=== PATIENT | female | born 1960 | race Caucasian/White ===

== ENCOUNTER → 2017-07-11 | Outpatient (CLI) | payer OTHER ==
[~2017-07-11] MED LIST: HYDR-3237 PO; HYDR-3307 PO; LIDO700A5 TD; TIZA2CAP2 PO
== END | disposition home or self-care (01) ==
LOC: CFH 15:11
PROVIDERS: ATTEND Physical Medicine & Rehabilitation
DX: R22.41 Localized swelling, mass and lump, right lower limb (principal)

== ENCOUNTER 2017-09-28 08:31 | Emergency (ER) | payer OTHER ==
[~2017-09-28] VITALS: Ht 165.1 cm; Wt 98.0 kg
[2017-09-28] MEDS ORDERED: ONDANSETRON 2MG/ML, 2ML IVPush ONE (09:00)
[2017-09-28] MEDS ORDERED: SODIUM CHLORIDE 0.9% 1,000ML IVBOLUS ONE (09:00)
[2017-09-28] MEDS ORDERED: SODIUM CHLORIDE FLUSH 10ML SYR IVF ONE (09:00)
[2017-09-28] MEDS ORDERED: ONDANSETRON 2MG/ML, 2ML ONE (09:17)
[2017-09-28] MEDS ORDERED: PLEASE ENTER HEIGHT AND WEIGHT MC SCH (09:30)
[2017-09-28 09:39] LABS: ANION GAP 6 mmol/L (5-15); CALCIUM 8.8 mg/dL (8.5-10.1); CHLORIDE 111 mmol/L (98-107); CREATININE 0.59 mg/dL (0.55-1.02)
[2017-09-28 09:40] LABS: ALBUMIN 3.6 g/dL (3.4-5.0)
[2017-09-28 09:43] LABS: TROPONIN I < 0.015 ng/mL (0.000-0.045)
[2017-09-28] MEDS ORDERED: META800T PO (09:58)
[2017-09-28 10:15] LABS: BASOPHILS # (AUTO) 0.03 x10^3/uL (0-0.1); BASOPHILS % (AUTO) 0 % (0-1); EOSINOPHILS # (AUTO) 0.04 x10^3/uL (0-0.4); EOSINOPHILS % (AUTO) 1 % (1-7); LYMPHOCYTES # (AUTO) 1.46 x10^3/uL (1-3.4); LYMPHOCYTES % (AUTO) 19 % (22-44); MD NO; MEAN CORPUSCULAR HEMOGLOBIN 30.3 pg (27.0-34.8); MEAN CORPUSCULAR HGB CONC 33.8 g/dL (32.4-35.8); MEAN CORPUSCULAR VOLUME 89.7 fL (80-100); MEAN PLATELET VOLUME 8.1 fL (7.4-10.4); MONOCYTES # (AUTO) 0.58 x10^3/uL (0.2-0.8); MONOCYTES % (AUTO) 8 % (2-9); NEUTROPHILS % (AUTO) 72 % (42-75); PLATELET COUNT 244 x10^3/uL (130-400); RED BLOOD COUNT 4.45 x10^6/uL (3.82-5.3); RED CELL DISTRIBUTION WIDTH 13.4 % (9.6-15.2)
[2017-09-28] MEDS ORDERED: DIPHENHYDRAMINE 50 MG/ML, 1ML IVPush PRN (11:00)
[2017-09-28] MEDS ORDERED: methylPREDNISolone SOD SUCC 125 MG/2 ML IVPush ONE (11:00)
[2017-09-28 11:33] LABS: MICROSCOPIC AUTO
[2017-09-28 11:35] LABS: CULTURE INDICATED? YES
[2017-09-28 11:36] VITALS: BP 132/63
[2017-09-28] MEDS ORDERED: methylPREDNISolone SOD SUCC 125 MG/2 ML ONE (11:42)
[2017-09-28] MEDS ORDERED: DIPHENHYDRAMINE 50 MG/ML, 1ML ONE (11:42)
[2017-09-28] MEDS ORDERED: OMNIPAQUE 350 MG/ML, 100ML BOTTLE ONE (12:26)
== END 2017-09-28 12:58 | disposition home or self-care (01) ==
LOC: ED 11:08
DX: R55 Syncope and collapse (principal); N12 Tubulo-interstitial nephritis, not specified as acute or chronic; E66.9 Obesity, unspecified; F17.210 Nicotine dependence, cigarettes, uncomplicated
CPT/HCPCS: 36415; 71045; 71275; 80048; 81001; 82040; 83880; 84484; 85025; 85379; 87086; 93005; 96361; 96374; 96375; 99285; J1200; J2405; J2930; J7030; Q9967

== ENCOUNTER 2018-03-01 17:34 | Emergency (ER) | payer OTHER ==
[~2018-03-01] VITALS: Ht 165.1 cm; Wt 97.9 kg
[~2018-03-01 17:34] MED LIST changes: +META800T PO
[2018-03-01 17:38] VITALS: BP 125/77
[2018-03-01] MEDS ORDERED: PHENAZOPYRIDINE 200 MG TABLET PO ONE (18:30)
[2018-03-01 18:32] LABS: MICROSCOPIC INDICATED
[2018-03-01] MEDS ORDERED: PHENAZOPYRIDINE 200 MG TABLET ONE (18:32)
[2018-03-01 18:57] LABS: BASOPHILS # (AUTO) 0.02 x10^3/uL (0-0.1); BASOPHILS % (AUTO) 0 % (0-1); EOSINOPHILS # (AUTO) 0.09 x10^3/uL (0-0.4); EOSINOPHILS % (AUTO) 1 % (1-7); LYMPHOCYTES % (AUTO) 22 % (22-44); MD NO; MEAN CORPUSCULAR HEMOGLOBIN 31.5 pg (27.0-34.8); MEAN CORPUSCULAR HGB CONC 33.9 g/dL (32.4-35.8); MEAN CORPUSCULAR VOLUME 92.8 fL (80-100); MEAN PLATELET VOLUME 8.9 fL (7.4-10.4); MONOCYTES # (AUTO) 0.43 x10^3/uL (0.2-0.8); MONOCYTES % (AUTO) 4 % (2-9); NEUTROPHILS # (AUTO) 7.71 x10^3/uL (1.8-6.8); NEUTROPHILS % (AUTO) 73 % (42-75); PLATELET COUNT 240 x10^3/uL (130-400); RED BLOOD COUNT 4.18 x10^6/uL (3.82-5.3); RED CELL DISTRIBUTION WIDTH 13.4 % (9.6-15.2)
[2018-03-01 19:05] LABS: ALANINE AMINOTRANSFERASE 16 U/L (12-78); ALBUMIN 3.4 g/dL (3.4-5.0); ANION GAP 7 mmol/L (5-15); CALCIUM 8.6 mg/dL (8.5-10.1); CHLORIDE 111 mmol/L (98-107); CREATININE 0.64 mg/dL (0.55-1.02)
[2018-03-01 19:07] LABS: ALKALINE PHOSPHATASE 101 U/L (45-117); BILIRUBIN,TOTAL 0.2 mg/dL (0.2-1.0); TOTAL PROTEIN 7.1 g/dL (6.4-8.2)
== END 2018-03-01 20:08 | disposition home or self-care (01) ==
LOC: ED 18:12
DX: N30.01 Acute cystitis with hematuria (principal); Z88.6 Allergy status to analgesic agent; Z88.5 Allergy status to narcotic agent; Z88.8 Allergy status to other drugs, medicaments and biological substances
CPT/HCPCS: 36415; 80053; 81001; 83690; 85025; 99284

== ENCOUNTER 2018-03-05 10:48 | Emergency (ER) | payer OTHER ==
[~2018-03-05] VITALS: Ht 162.6 cm; Wt 95.0 kg
[2018-03-05] MEDS ORDERED: SODIUM CHLORIDE FLUSH 10ML SYR IVF ONE (11:30)
[2018-03-05 11:31] LABS: MICROSCOPIC AUTO
[2018-03-05 11:41] LABS: BASOPHILS # (AUTO) 0.03 x10^3/uL (0-0.1); BASOPHILS % (AUTO) 0 % (0-1); EOSINOPHILS # (AUTO) 0.09 x10^3/uL (0-0.4); EOSINOPHILS % (AUTO) 1 % (1-7); LYMPHOCYTES # (AUTO) 2.25 x10^3/uL (1-3.4); LYMPHOCYTES % (AUTO) 31 % (22-44); MD NO; MEAN CORPUSCULAR HEMOGLOBIN 31.6 pg (27.0-34.8); MEAN CORPUSCULAR HGB CONC 34.2 g/dL (32.4-35.8); MEAN CORPUSCULAR VOLUME 92.2 fL (80-100); MEAN PLATELET VOLUME 8.7 fL (7.4-10.4); MONOCYTES # (AUTO) 0.55 x10^3/uL (0.2-0.8); MONOCYTES % (AUTO) 8 % (2-9); NEUTROPHILS # (AUTO) 4.41 x10^3/uL (1.8-6.8); NEUTROPHILS % (AUTO) 60 % (42-75); PLATELET COUNT 268 x10^3/uL (130-400); RED BLOOD COUNT 4.44 x10^6/uL (3.82-5.3); RED CELL DISTRIBUTION WIDTH 13.1 % (9.6-15.2)
[2018-03-05 11:51] LABS: CULTURE INDICATED? YES
[2018-03-05 11:54] LABS: ALANINE AMINOTRANSFERASE 17 U/L (12-78); ALBUMIN 3.6 g/dL (3.4-5.0); ANION GAP 5 mmol/L (5-15); CALCIUM 8.8 mg/dL (8.5-10.1); CHLORIDE 110 mmol/L (98-107)
[2018-03-05 11:56] LABS: ALKALINE PHOSPHATASE 109 U/L (45-117); BILIRUBIN,TOTAL 0.3 mg/dL (0.2-1.0); TOTAL PROTEIN 7.6 g/dL (6.4-8.2)
[2018-03-05 15:00] VITALS: BP 142/79
== END 2018-03-05 15:02 | disposition home or self-care (01) ==
LOC: ED 14:55
DX: N13.2 Hydronephrosis with renal and ureteral calculous obstruction (principal); N30.00 Acute cystitis without hematuria; Z88.6 Allergy status to analgesic agent; Z88.5 Allergy status to narcotic agent
CPT/HCPCS: 36415; 74176; 80053; 81001; 85025; 87086; 99285

== ENCOUNTER → 2018-05-14 | Outpatient (CLI) | payer OTHER | END | disposition home or self-care (01) | LOC: STAR 08:47 | PROVIDERS: ATTEND Student in an Organized Health Care Education/Training Program | DX: Z01.818 Encounter for other preprocedural examination (principal); N20.0 Calculus of kidney | CPT/HCPCS: 36415; 71046; 80048; 81001; 85025; 85610; 85730; 87086; 93005 ==

== ENCOUNTER 2018-06-04 07:21 | Day surgery (SDC) | payer OTHER ==
[2018-05-14 09:14] VITALS: BP 147/90
[2018-05-14 10:04] LABS: BASOPHILS # (AUTO) 0.04 x10^3/uL (0-0.1); BASOPHILS % (AUTO) 1 % (0-1); EOSINOPHILS # (AUTO) 0.12 x10^3/uL (0-0.4); EOSINOPHILS % (AUTO) 2 % (1-7); LYMPHOCYTES # (AUTO) 2.11 x10^3/uL (1-3.4); LYMPHOCYTES % (AUTO) 32 % (22-44); MD NO; MEAN CORPUSCULAR VOLUME 93.9 fL (80-100); MEAN PLATELET VOLUME 8.6 fL (7.4-10.4); MONOCYTES # (AUTO) 0.49 x10^3/uL (0.2-0.8); MONOCYTES % (AUTO) 7 % (2-9); NEUTROPHILS % (AUTO) 59 % (42-75); PLATELET COUNT 273 x10^3/uL (130-400); RED BLOOD COUNT 4.35 x10^6/uL (3.82-5.3); RED CELL DISTRIBUTION WIDTH 13.1 % (9.6-15.2)
[2018-05-14 10:13] LABS: ANION GAP 5 mmol/L (5-15); CALCIUM 8.8 mg/dL (8.5-10.1); CHLORIDE 109 mmol/L (98-107)
[2018-05-14 10:19] LABS: MICROSCOPIC INDICATED
[2018-05-14 10:19] LABS: INTERNATIONAL NORMALIZED RATIO 0.94 (0.93-1.1); PROTHROMBIN TIME 9.8 Seconds (9.6-11.5)
[~2018-06-04] VITALS: Ht 165.1 cm; Wt 95.1 kg
[2018-06-04] MEDS ORDERED: LACTATED RINGERS 1,000 ML IV SCH (07:52)
== END 2018-06-04 08:25 | disposition home or self-care (01) ==
LOC: OUT 07:21 → EDSTATUS 09:30
PROVIDERS: ATTEND Student in an Organized Health Care Education/Training Program
DX: N20.0 Calculus of kidney (principal); Z53.9 Procedure and treatment not carried out, unspecified reason
CPT/HCPCS: 36415; 71046; 80048; 81001; 85025; 85610; 85730; 87086

== ENCOUNTER 2019-02-12 18:34 | Emergency (ER) | payer OTHER ==
[~2019-02-12] VITALS: Ht 165.1 cm; Wt 101.7 kg
--- NOTE | 2019-02-12 19:13 | NUR ---
Pt reports bilateral flank pain x1 week approx, "felt like I passed a lego last week" Cloudy urine sent to lab, pt denies any needs/concerns.
[2019-02-12] MEDS ORDERED: GABA600T7 PO (19:18)
[2019-02-12 19:27] LABS: CULTURE INDICATED? YES; MICROSCOPIC INDICATED
[2019-02-12 19:29] LABS: BASOPHILS # (AUTO) 0.05 x10^3/uL (0-0.1); BASOPHILS % (AUTO) 1 % (0-1); EOSINOPHILS # (AUTO) 0.12 x10^3/uL (0-0.4); EOSINOPHILS % (AUTO) 1 % (1-7); LYMPHOCYTES # (AUTO) 2.56 x10^3/uL (1-3.4); LYMPHOCYTES % (AUTO) 27 % (22-44); MD NO; MEAN CORPUSCULAR HEMOGLOBIN 31.3 pg (27.0-34.8); MEAN PLATELET VOLUME 8.2 fL (7.4-10.4); MONOCYTES # (AUTO) 0.65 x10^3/uL (0.2-0.8); MONOCYTES % (AUTO) 7 % (2-9); NEUTROPHILS # (AUTO) 5.96 x10^3/uL (1.8-6.8); NEUTROPHILS % (AUTO) 64 % (42-75); PLATELET COUNT 327 x10^3/uL (130-400); RED CELL DISTRIBUTION WIDTH 12.9 % (9.6-15.2)
[2019-02-12 19:35] LABS: ALBUMIN 3.6 g/dL (3.4-5.0); ANION GAP 5 mmol/L (5-15); CHLORIDE 106 mmol/L (98-107); CREATININE 0.71 mg/dL (0.55-1.02)
--- NOTE | 2019-02-12 19:49 | NUR ---
Chart up for recheck, pt denies needs/concerns. Sitting on chair on phone. No obv acute distress noted.
[2019-02-12] MEDS ORDERED: CEFTRIAXONE 1,000 MG IM ONE (20:00)
[2019-02-12 20:21] VITALS: BP 121/61
[2019-02-12] MEDS ORDERED: CEFTRIAXONE 1,000 MG ONE (20:22)
== END 2019-02-12 20:42 | disposition home or self-care (01) ==
LOC: ED 19:14
DX: N30.00 Acute cystitis without hematuria (principal); R19.7 Diarrhea, unspecified; I10 Essential (primary) hypertension; F17.200 Nicotine dependence, unspecified, uncomplicated
CPT/HCPCS: 36415; 80048; 81001; 82040; 85025; 87086; 96372; 99283; J0696

== ENCOUNTER 2019-08-03 08:37 | Emergency (ER) | payer OTHER ==
[~2019-08-03] VITALS: Ht 165.1 cm; Wt 99.6 kg
[~2019-08-03 08:37] MED LIST changes: +GABA600T7 PO; -HYDR-3307 PO; +HYDR-36 PO
[2019-08-03] MEDS ORDERED: ONDANSETRON 2MG/ML, 2ML IVPush ONE (09:30)
[2019-08-03] MEDS ORDERED: FAMOTIDINE 20 MG/2 ML IV ONE (09:30)
[2019-08-03] MEDS ORDERED: HYDROmorphone 2 MG/ML, 1ML IVPush PRN (09:30)
[2019-08-03] MEDS ORDERED: SODIUM CHLORIDE 0.9% 1,000ML IVBOLUS ONE (09:30)
[2019-08-03] MEDS ORDERED: SODIUM CHLORIDE FLUSH 10ML SYR IVF ONE (09:30)
[2019-08-03 09:32] LABS: MICROSCOPIC INDICATED
[2019-08-03 09:35] LABS: CULTURE INDICATED? YES
[2019-08-03 09:55] LABS: BASOPHILS # (AUTO) 0.03 x10^3/uL (0-0.1); BASOPHILS % (AUTO) 1 % (0-1); EOSINOPHILS # (AUTO) 0.05 x10^3/uL (0-0.4); EOSINOPHILS % (AUTO) 1 % (1-7); LYMPHOCYTES # (AUTO) 1.86 x10^3/uL (1-3.4); LYMPHOCYTES % (AUTO) 30 % (22-44); MD NO; MEAN CORPUSCULAR HEMOGLOBIN 29.8 pg (27.0-34.8); MEAN CORPUSCULAR HGB CONC 32.9 g/dL (32.4-35.8); MEAN CORPUSCULAR VOLUME 90.4 fL (80-100); MEAN PLATELET VOLUME 7.5 fL (7.4-10.4); MONOCYTES # (AUTO) 0.52 x10^3/uL (0.2-0.8); MONOCYTES % (AUTO) 8 % (2-9); NEUTROPHILS # (AUTO) 3.71 x10^3/uL (1.8-6.8); NEUTROPHILS % (AUTO) 60 % (42-75); PLATELET COUNT 337 x10^3/uL (130-400); RED BLOOD COUNT 4.19 x10^6/uL (3.82-5.3); RED CELL DISTRIBUTION WIDTH 13.9 % (9.6-15.2)
[2019-08-03] MEDS ORDERED: ONDANSETRON 2MG/ML, 2ML ONE (09:56)
[2019-08-03] MEDS ORDERED: HYDROmorphone 1 MG/ML, 1ML VIAL ONE (09:56)
[2019-08-03] MEDS ORDERED: FAMOTIDINE 20 MG/2 ML ONE (09:56)
[2019-08-03 10:04] LABS: ALANINE AMINOTRANSFERASE 14 U/L (12-78); ANION GAP 7 mmol/L (5-15); CALCIUM 8.8 mg/dL (8.5-10.1); CHLORIDE 110 mmol/L (98-107); CREATININE 0.59 mg/dL (0.55-1.02)
[2019-08-03 10:07] LABS: ALKALINE PHOSPHATASE 120 U/L (45-117); BILIRUBIN,TOTAL 0.4 mg/dL (0.2-1.0); TOTAL PROTEIN 7.3 g/dL (6.4-8.2)
[2019-08-03] MEDS ORDERED: TIZA4TAB2 PO (10:07)
[2019-08-03] MEDS ORDERED: GABA300C10 PO (10:07)
--- NOTE | 2019-08-03 10:08 | NUR ---
Break RN note: Pt medicated per OCT, 5 min after medications states pain 0/10. US tech at bedside to perform ordered studies. Pt denies other needs.
[2019-08-03] MEDS ORDERED: CEFTRIAXONE PMX 1GM/50ML 50 ML IV SCH (10:30)
[2019-08-03] MEDS ORDERED: CEFTRIAXONE PMX 1GM/50ML 50 ML ONE (10:34)
--- NOTE | 2019-08-03 10:42 | NUR ---
AFTER ULTRASOUND UOB TO BATHROOM. ANTIBIOTICS INFUSING PER ORDERS.
[2019-08-03 11:50] VITALS: BP 124/69
== END 2019-08-03 11:52 | disposition home or self-care (01) ==
LOC: ED 10:56
DX: N20.0 Calculus of kidney (principal); N11.9 Chronic tubulo-interstitial nephritis, unspecified; R19.7 Diarrhea, unspecified; I10 Essential (primary) hypertension; G89.29 Other chronic pain; Z90.89 Acquired absence of other organs; Z88.5 Allergy status to narcotic agent; Z88.6 Allergy status to analgesic agent
CPT/HCPCS: 36415; 76700; 80053; 81001; 83690; 85025; 87086; 96361; 96365; 96375; 99284; J0696; J1170; J2405; J3490; J7030

== ENCOUNTER 2020-04-17 19:27 | Inpatient (IN) | payer OTHER ==
[~2020-04-17] VITALS: Ht 165.1 cm; Wt 96.3 kg
[~2020-04-17 19:27] MED LIST changes: +GABA300C10 PO; +HYDR-3246 PO; -HYDR-36 PO; +SULF1TAB24 PO; +TIZA4TAB2 PO
--- NOTE | 2020-04-17 20:00 | NUR ---
PT. AMBULATORY TO BR WITH STEADY GAIT TO PROVIDE CLEAN CATCH URINE SAMPLE. PT. ONLY ABLE TO VOID ABOUT 50ML OF CLOUDY YELLOW URINE. REPORTS PAINFUL URINATION. RIGHT NEPHROSTOMY TUBE DRAINAGE BAG WITH VERY CLOUDY/SEDIMENTED URINE NOTED. PT. AWAITING PROVIDER JOSELITO.
[2020-04-17 20:10] LABS: MICROSCOPIC INDICATED
--- NOTE | 2020-04-17 20:27 | NUR ---
PT. TO CT VIA [facility] AT THIS TIME.
--- NOTE | 2020-04-17 20:47 | NUR ---
PT. RESTING ON GURNEY; DENIES NEEDS AT THIS TIME. FRIEND AT BS FOR SUPPORT. ALL SAFETY MEASURES OBSERVED.
[2020-04-17 20:52] LABS: ALANINE AMINOTRANSFERASE 10 U/L (12-78); ANION GAP 7 mmol/L (5-15); CALCIUM 8.7 mg/dL (8.5-10.1); CHLORIDE 110 mmol/L (98-107); CREATININE 0.78 mg/dL (0.55-1.02)
[2020-04-17 20:54] LABS: ALKALINE PHOSPHATASE 107 U/L (45-117); BILIRUBIN,TOTAL 0.2 mg/dL (0.2-1.0); TOTAL PROTEIN 7.2 g/dL (6.4-8.2)
[2020-04-17 20:59] LABS: BASOPHILS # (AUTO) 0.05 x10^3/uL (0-0.1); BASOPHILS % (AUTO) 1 % (0-1); EOSINOPHILS # (AUTO) 0.29 x10^3/uL (0-0.4); EOSINOPHILS % (AUTO) 4 % (1-7); LYMPHOCYTES # (AUTO) 2.24 x10^3/uL (1-3.4); LYMPHOCYTES % (AUTO) 31 % (22-44); MD NO; MEAN CORPUSCULAR HEMOGLOBIN 29.8 pg (27.0-34.8); MEAN CORPUSCULAR HGB CONC 32.8 g/dL (32.4-35.8); MEAN CORPUSCULAR VOLUME 90.8 fL (80-100); MEAN PLATELET VOLUME 7.9 fL (7.4-10.4); MONOCYTES % (AUTO) 7 % (2-9); NEUTROPHILS # (AUTO) 4.05 x10^3/uL (1.8-6.8); NEUTROPHILS % (AUTO) 57 % (42-75); PLATELET COUNT 264 x10^3/uL (130-400); RED BLOOD COUNT 3.39 x10^6/uL (3.82-5.3); RED CELL DISTRIBUTION WIDTH 14.6 % (9.6-15.2)
[2020-04-17] MEDS ORDERED: SODIUM CHLORIDE 0.9% 1,000ML IVBOLUS ONE (21:30)
[2020-04-17] MEDS ORDERED: CEFTRIAXONE PMX 1GM/50ML 50 ML IV ONE (21:30)
[2020-04-17] MEDS ORDERED: SODIUM CHLORIDE FLUSH 10ML SYR IVF ONE (21:30)
[2020-04-17] MEDS ORDERED: CEFTRIAXONE PMX 1GM/50ML 50 ML ONE (21:42)
[2020-04-17] MEDS ORDERED: KETOROLAC 30 MG/1 ML ONE (21:42)
--- NOTE | 2020-04-17 21:47 | NUR ---
[facility] IN TO EVAL PT. FOR ADMISSION. PT. MEDICATED PER OCT.
[2020-04-17] MEDS ORDERED: KETOROLAC 30 MG/1 ML IVPush ONE (22:00)
[2020-04-17] MEDS ORDERED: DOCUSATE 100 MG CAPSULE PO PRN (22:00)
[2020-04-17] MEDS: ENOXAPARIN 40 MG/0.4 ML SQ SCH (22:00)
[2020-04-17] MEDS ORDERED: CYCLOBENZAPRINE 10 MG TABLET PO PRN (22:00)
[2020-04-17] MEDS ORDERED: MELATONIN 5 MG TABLET PO PRN (22:00)
[2020-04-17] MEDS ORDERED: ACETAMINOPHEN 325 MG TABLET PO PRN (22:00)
[2020-04-17] MEDS ORDERED: KETOROLAC 30 MG/1 ML IV PRN (22:00)
[2020-04-17] MEDS ORDERED: hydrALAzine 20 MG/ML, 1ML IVPush PRN (22:00)
[2020-04-17] MEDS ORDERED: NICOTINE 14MG/24 HR PATCH.TD24 TD ONE (22:30)
[2020-04-17] MEDS: CEFTRIAXONE PMX 1GM/50ML 50 ML IV SCH (22:30)
--- NOTE | 2020-04-17 22:36 | NUR ---
REPORT TO [facility] FRANCO. FLOOR READY FOR PT. TRANSPORT. MED REC COMPLETED.
[2020-04-17 23:05] VITALS: BP_SYST 159; BP_SYST 195; BP_DIAS 88
[2020-04-17] MEDS: LACTATED RINGERS 1,000 ML IV SCH (23:09)
[2020-04-18 01:28] LABS: BASOPHILS # (AUTO) 0.04 x10^3/uL (0-0.1); BASOPHILS % (AUTO) 1 % (0-1); EOSINOPHILS % (AUTO) 5 % (1-7); LYMPHOCYTES # (AUTO) 2.06 x10^3/uL (1-3.4); LYMPHOCYTES % (AUTO) 32 % (22-44); MD NO; MEAN CORPUSCULAR HGB CONC 32.9 g/dL (32.4-35.8); MEAN CORPUSCULAR VOLUME 91.1 fL (80-100); MONOCYTES # (AUTO) 0.48 x10^3/uL (0.2-0.8); MONOCYTES % (AUTO) 7 % (2-9); NEUTROPHILS # (AUTO) 3.64 x10^3/uL (1.8-6.8); NEUTROPHILS % (AUTO) 56 % (42-75); PLATELET COUNT 240 x10^3/uL (130-400); RED BLOOD COUNT 3.24 x10^6/uL (3.82-5.3); RED CELL DISTRIBUTION WIDTH 15.2 % (9.6-15.2)
[2020-04-18 01:37] LABS: ANION GAP 7 mmol/L (5-15); CALCIUM 8.6 mg/dL (8.5-10.1); CHLORIDE 111 mmol/L (98-107); CREATININE 0.72 mg/dL (0.55-1.02)
[2020-04-18 04:35] VITALS: BP 152/86
[2020-04-18 04:40] VITALS: BP 152/86
[2020-04-18 07:38] VITALS: BP 175/85
[2020-04-18] MEDS ORDERED: POTASSIUM CHLORIDE 40 MEQ in SODIUM CHLORIDE 0.9% 500 ML IV ONE (08:00)
[2020-04-18] MEDS: LACTATED RINGERS 1,000 ML IV SCH ×2 (08:22→17:07)
[2020-04-18] MEDS: TIZANIDINE 4MG TABLET PO SCH ×3 (08:38→22:25)
[2020-04-18] MEDS: GABAPENTIN 400 MG CAPSULE PO SCH ×3 (08:38→22:25)
[2020-04-18] MEDS ORDERED: HYDROmorphone 2 MG/ML, 1ML IVPush PRN (12:30)
[2020-04-18] MEDS: ONDANSETRON 2MG/ML, 2ML IVPush PRN (13:05)
[2020-04-18 13:29] VITALS: BP 148/69
[2020-04-18 19:49] VITALS: BP 144/82
[2020-04-18] MEDS: ENOXAPARIN 40 MG/0.4 ML SQ SCH ×3 (22:00→22:45)
[2020-04-18] MEDS: CEFTRIAXONE PMX 1GM/50ML 50 ML IV SCH (22:26)
[2020-04-19 01:16] VITALS: BP 154/76
[2020-04-19] MEDS: LACTATED RINGERS 1,000 ML IV SCH ×2 (06:00→16:00)
[2020-04-19 06:05] LABS: CHLORIDE 112 mmol/L (98-107)
[2020-04-19 06:12] LABS: BASOPHILS # (AUTO) 0.03 x10^3/uL (0-0.1); BASOPHILS % (AUTO) 1 % (0-1); EOSINOPHILS # (AUTO) 0.14 x10^3/uL (0-0.4); EOSINOPHILS % (AUTO) 2 % (1-7); LYMPHOCYTES # (AUTO) 1.54 x10^3/uL (1-3.4); LYMPHOCYTES % (AUTO) 23 % (22-44); MD NO; MEAN CORPUSCULAR HEMOGLOBIN 30.2 pg (27.0-34.8); MEAN CORPUSCULAR VOLUME 94.3 fL (80-100); MEAN PLATELET VOLUME 8.2 fL (7.4-10.4); MONOCYTES # (AUTO) 0.39 x10^3/uL (0.2-0.8); MONOCYTES % (AUTO) 6 % (2-9); NEUTROPHILS # (AUTO) 4.65 x10^3/uL (1.8-6.8); NEUTROPHILS % (AUTO) 69 % (42-75); PLATELET COUNT 268 x10^3/uL (130-400); RED BLOOD COUNT 3.49 x10^6/uL (3.82-5.3); RED CELL DISTRIBUTION WIDTH 14.8 % (9.6-15.2)
[2020-04-19 06:18] LABS: ANION GAP 6 mmol/L (5-15); CALCIUM 8.6 mg/dL (8.5-10.1); CREATININE 0.51 mg/dL (0.55-1.02)
[2020-04-19 07:58] VITALS: BP 158/78
[2020-04-19] MEDS: GABAPENTIN 400 MG CAPSULE PO SCH ×3 (08:17→20:35)
[2020-04-19] MEDS: TIZANIDINE 4MG TABLET PO SCH ×3 (08:19→20:34)
[2020-04-19] MEDS: HYDROcodone/APAP 10/325 MG TABLET PO PRN ×2 (08:21→16:41)
[2020-04-19] MEDS ORDERED: POTASSIUM CHLORIDE 20 MEQ TAB.ER.PRT PO ONE (09:30)
[2020-04-19 12:21] VITALS: BP 133/87
[2020-04-19] MEDS: LACTOBACILLUS CHEW TABLET PO SCH ×3 (12:26→20:34)
[2020-04-19 15:32] LABS: CLOSTRIDIUM DIFFICILE ANTIGEN NEGATIVE; CLOSTRIDIUM DIFFICILE TOXIN NEGATIVE (Negative)
[2020-04-19] MEDS ORDERED: NICOTINE 21 MG/24 HR PATCH.TD24 ONE (15:38)
[2020-04-19] MEDS: TAMSULOSIN 0.4 MG CAP.ER.24H PO SCH (15:43)
[2020-04-19] MEDS: NICOTINE 21 MG/24 HR PATCH.TD24 TD SCH (15:44)
[2020-04-19 16:33] LABS: MICROSCOPIC INDICATED
[2020-04-19 20:11] VITALS: BP 156/90
[2020-04-19] MEDS: ENOXAPARIN 40 MG/0.4 ML SQ SCH (22:00)
[2020-04-20 01:18] VITALS: BP 150/88
[2020-04-20] MEDS: CEFTRIAXONE PMX 1GM/50ML 50 ML IV SCH ×2 (02:10→14:28)
[2020-04-20 05:08] LABS: ANION GAP 5 mmol/L (5-15); CALCIUM 8.8 mg/dL (8.5-10.1); CHLORIDE 112 mmol/L (98-107)
[2020-04-20 05:09] LABS: CREATININE 0.57 mg/dL (0.55-1.02)
[2020-04-20] MEDS ORDERED: CEFTRIAXONE PMX 2GM/50ML 50 ML IV SCH (06:30)
[2020-04-20] MEDS ORDERED: LOPERAMIDE 2 MG CAPSULE PO PRN (06:30)
[2020-04-20] MEDS: LACTOBACILLUS CHEW TABLET PO SCH ×5 (06:39→21:00)
[2020-04-20] MEDS: LACTATED RINGERS 1,000 ML IV SCH (08:00)
[2020-04-20] MEDS: NICOTINE 21 MG/24 HR PATCH.TD24 TD SCH (08:10)
[2020-04-20] MEDS: GABAPENTIN 400 MG CAPSULE PO SCH ×3 (08:10→21:43)
[2020-04-20] MEDS: CHOLESTYRAMINE LIGHT 4GM PACKET PO SCH ×2 (08:10→08:17)
[2020-04-20] MEDS: TAMSULOSIN 0.4 MG CAP.ER.24H PO SCH (08:10)
[2020-04-20] MEDS: TIZANIDINE 4MG TABLET PO SCH ×3 (08:10→21:43)
[2020-04-20 08:20] VITALS: BP 188/83
[2020-04-20] MEDS: ONDANSETRON 2MG/ML, 2ML IVPush PRN ×2 (08:43→20:08)
[2020-04-20] MEDS: HYDROcodone/APAP 10/325 MG TABLET PO PRN ×2 (10:48→19:33)
[2020-04-20] MEDS: ALUMINUM/MAG/SIMETHICONE 30 ML UDC PO PRN ×2 (10:48→17:23)
[2020-04-20] MEDS ORDERED: LORazepam 2 MG/ML, 1ML IVPush PRN (11:00)
[2020-04-20 11:10] VITALS: BP 165/80
[2020-04-20 12:57] VITALS: BP 162/82
[2020-04-20] MEDS: SIMETHICONE 80 MG CHEW TAB PO SCH ×3 (13:31→21:43)
[2020-04-20 18:52] VITALS: BP 162/90
[2020-04-20] MEDS: ENOXAPARIN 40 MG/0.4 ML SQ SCH (21:44)
[2020-04-21 00:45] VITALS: BP 137/88
[2020-04-21] MEDS: CEFTRIAXONE PMX 1GM/50ML 50 ML IV SCH (02:28)
[2020-04-21] MEDS: ONDANSETRON 2MG/ML, 2ML IVPush PRN (03:46)
[2020-04-21] MEDS: LACTOBACILLUS CHEW TABLET PO SCH ×2 (06:00→11:00)
[2020-04-21] MEDS: TAMSULOSIN 0.4 MG CAP.ER.24H PO SCH (07:43)
[2020-04-21] MEDS: TIZANIDINE 4MG TABLET PO SCH (07:43)
[2020-04-21] MEDS: SIMETHICONE 80 MG CHEW TAB PO SCH ×2 (07:43→11:00)
[2020-04-21] MEDS: GABAPENTIN 400 MG CAPSULE PO SCH (07:43)
[2020-04-21] MEDS: HYDROcodone/APAP 10/325 MG TABLET PO PRN (07:45)
[2020-04-21] MEDS: NICOTINE 21 MG/24 HR PATCH.TD24 TD SCH (07:45)
[2020-04-21] MEDS: CHOLESTYRAMINE LIGHT 4GM PACKET PO SCH (07:45)
[2020-04-21 08:05] VITALS: BP 153/92
[2020-04-21] MEDS ORDERED: TAMS-11 PO (09:42)
[2020-04-21] MEDS ORDERED: SULF1TAB24 PO (09:42)
[2020-04-21] MEDS ORDERED: ACID1TAB7 PO (09:42)
[2020-04-21] MEDS: ALUMINUM/MAG/SIMETHICONE 30 ML UDC PO PRN (11:58)
[2020-04-21 14:03] VITALS: BP 169/101
[2020-04-21] MEDS ORDERED: HYDR-3341 PO (14:26)
== END 2020-04-21 14:45 | disposition home or self-care (01) | DRG 690 ==
LOC: ED 19:57 → 3N 22:45
PROVIDERS: ADMIT Hospitalist; ATTEND Internal Medicine
DX: N13.6 Pyonephrosis (principal); N20.2 Calculus of kidney with calculus of ureter; E87.6 Hypokalemia; D64.9 Anemia, unspecified; F17.210 Nicotine dependence, cigarettes, uncomplicated; G89.29 Other chronic pain; I10 Essential (primary) hypertension; Z98.51 Tubal ligation status; Z88.5 Allergy status to narcotic agent; Z91.041 Radiographic dye allergy status
CPT/HCPCS: 36415; 74176; 80048; 80053; 81001; 83690; 83735; 84100; 85025; 87040; 87086; 87324; 96365; G0378; J0696; J1650; J1885; J2405; J3480; J2060; J7030; J7040; J7120

== ENCOUNTER 2020-08-21 05:19 | Inpatient (IN) | payer OTHER ==
[~2020-08-21] VITALS: Ht 160 cm; Wt 90.0 kg
[~2020-08-21 05:19] MED LIST changes: +ACID1TAB7 PO; +CIPR500T3 PO; +HYDR-3341 PO; +TAMS-11 PO
[2020-08-21] MEDS ORDERED: FAMOTIDINE 20 MG/2 ML IV ONE (06:00)
[2020-08-21] MEDS ORDERED: SODIUM CHLORIDE FLUSH 10ML SYR IVF ONE (06:00)
[2020-08-21] MEDS ORDERED: SODIUM CHLORIDE 0.9% 1,000ML IVBOLUS ONE (06:00)
[2020-08-21] MEDS ORDERED: ONDANSETRON 2MG/ML, 2ML IVPush ONE ×2 (06:00→08:00)
[2020-08-21 06:48] LABS: MICROSCOPIC INDICATED
[2020-08-21 06:49] LABS: BASOPHILS % (AUTO) 0 % (0-1); EOSINOPHILS % (AUTO) 0 % (1-7); LYMPHOCYTES % (AUTO) 4 % (22-44); MEAN CORPUSCULAR HEMOGLOBIN 30.3 pg (27.0-34.8); MEAN CORPUSCULAR HGB CONC 33.3 g/dL (32.4-35.8); MEAN PLATELET VOLUME 8.5 fL (7.4-10.4); MONOCYTES % (AUTO) 4 % (2-9); NEUTROPHILS % (AUTO) 91 % (42-75); PLATELET COUNT 249 x10^3/uL (130-400); RED BLOOD COUNT 4.84 x10^6/uL (3.82-5.3); RED CELL DISTRIBUTION WIDTH 14.9 % (9.6-15.2)
[2020-08-21 06:58] LABS: CHLORIDE 109 mmol/L (98-107)
[2020-08-21 07:15] LABS: ALANINE AMINOTRANSFERASE 18 U/L (12-78); ALKALINE PHOSPHATASE 120 U/L (45-117); ANION GAP 6 mmol/L (5-15); BILIRUBIN,TOTAL 0.4 mg/dL (0.2-1.0); CALCIUM 9.1 mg/dL (8.5-10.1); CREATININE 1.18 mg/dL (0.55-1.02); TOTAL PROTEIN 8.8 g/dL (6.4-8.2)
[2020-08-21 07:31] LABS: MD SCAN
[2020-08-21] MEDS ORDERED: HYDROmorphone 1 MG/ML, 1ML INJ IV STA (07:56)
[2020-08-21] MEDS ORDERED: KETOROLAC 30 MG/1 ML IVPush STA (07:56)
[2020-08-21] MEDS ORDERED: CEFTRIAXONE PMX 1GM/50ML 50 ML IVPB ONE (08:00)
--- NOTE | 2020-08-21 08:15 | NUR ---
UNABLE TO START PIV AFTER 3 ATTEMPTS CAROL HONG IN ROOM FOR ATTEMPT.
[2020-08-21] MEDS ORDERED: CEFTRIAXONE PMX 1GM/50ML 50 ML ONE (08:21)
[2020-08-21] MEDS ORDERED: KETOROLAC 30 MG/1 ML ONE (08:21)
[2020-08-21] MEDS ORDERED: ONDANSETRON 2MG/ML, 2ML ONE ×2 (08:22→16:48)
[2020-08-21] MEDS ORDERED: HYDROmorphone 1 MG/ML, 1ML INJ ONE (08:22)
[2020-08-21] MEDS ORDERED: FAMOTIDINE 20 MG/2 ML ONE (08:22)
--- NOTE | 2020-08-21 08:29 | NUR ---
CARLO HONG UNABLE TO START PIV, CHRIS HONG IN ROOM W/ US.
--- NOTE | 2020-08-21 08:32 | NUR ---
TASK RN: ARELY MONTENEGRO BLOOD CULTURES NOT INDICATED AT THIS TIME.
[2020-08-21 09:44] LABS: MICROSCOPIC INDICATED
--- NOTE | 2020-08-21 12:53 | NUR ---
PT AMBULATED TO BATHROOM APPROX 100FT AND TOLERATED WELL. STEADY GAIT
[2020-08-21] MEDS ORDERED: ONDANSETRON 2MG/ML, 2ML IVPush PRN ×2 (13:00→17:30)
[2020-08-21] MEDS ORDERED: ENALAPRILAT 1.25 MG/ML, 2ML IVPush PRN (13:00)
[2020-08-21] MEDS ORDERED: LABETALOL 5MG/ML, 20ML IVPush PRN (13:00)
[2020-08-21] MEDS ORDERED: SODIUM CHLORIDE 0.9% 1,000 ML IV SCH (13:00)
[2020-08-21] MEDS ORDERED: BISACODYL 10 MG SUPP PR PRN (13:00)
[2020-08-21] MEDS ORDERED: ACETAMINOPHEN 325 MG TABLET PO PRN (13:00)
[2020-08-21] MEDS ORDERED: KETOROLAC 30 MG/1 ML IM PRN (13:00)
[2020-08-21] MEDS ORDERED: HYDROmorphone 1 MG/ML, 1ML INJ IV PRN (13:30)
[2020-08-21 14:00] VITALS: BP 124/65
[2020-08-21] MEDS ORDERED: MIDAZOLAM 1 MG/ML, 2ML ONE (16:28)
[2020-08-21] MEDS ORDERED: FENTANYL PF 250 MCG/5ML ONE (16:29)
[2020-08-21] MEDS ORDERED: PROPOFOL 10 MG/ML, 20ML ONE (16:48)
[2020-08-21] MEDS ORDERED: ROCURONIUM 10MG/ML,5ML ONE (16:48)
[2020-08-21] MEDS ORDERED: DEXAMETHASONE 4 MG/ML, 5ML ONE (16:48)
[2020-08-21] MEDS ORDERED: SUCCINYLCHOLINE 20 MG/ML, 10ML ONE (16:48)
[2020-08-21] MEDS ORDERED: FENTANYL PF 100 MCG/2ML IV PRN (17:30)
[2020-08-21] MEDS ORDERED: LABETALOL 5MG/ML, 20ML IV PRN (17:30)
[2020-08-21] MEDS ORDERED: hydrALAzine 20 MG/ML, 1ML IV PRN (17:30)
[2020-08-21] MEDS ORDERED: HYDROmorphone 1 MG/ML, 1ML INJ IVPush PRN (17:30)
[2020-08-21] MEDS ORDERED: PROMETHAZINE 25 MG/ML, 1ML IVPush PRN (17:30)
[2020-08-21] MEDS ORDERED: OXYcodone 5 MG/5 ML ORAL.SOL UDC PO PRN (17:30)
[2020-08-21] MEDS ORDERED: FENTANYL PF 100 MCG/2ML ONE (18:53)
[2020-08-21] MEDS ORDERED: OXYcodone 5 MG/5 ML ORAL.SOL UDC ONE (18:54)
[2020-08-21 19:48] VITALS: BP 150/77
[2020-08-21] MEDS ORDERED: SODIUM CHLORIDE FLUSH 10ML SYR IVF SCH (21:00)
[2020-08-22 00:01] VITALS: BP 158/84
[2020-08-22 05:59] LABS: BASOPHILS % (AUTO) 0 % (0-1); EOSINOPHILS % (AUTO) 0 % (1-7); LYMPHOCYTES % (AUTO) 7 % (22-44); MEAN CORPUSCULAR HEMOGLOBIN 30.4 pg (27.0-34.8); MEAN CORPUSCULAR HGB CONC 33.6 g/dL (32.4-35.8); MEAN PLATELET VOLUME 8.4 fL (7.4-10.4); MONOCYTES % (AUTO) 6 % (2-9); NEUTROPHILS % (AUTO) 86 % (42-75); PLATELET COUNT 243 x10^3/uL (130-400); RED BLOOD COUNT 3.77 x10^6/uL (3.82-5.3); RED CELL DISTRIBUTION WIDTH 14.7 % (9.6-15.2)
[2020-08-22 06:00] LABS: MD NO
[2020-08-22 06:12] LABS: ANION GAP 7 mmol/L (5-15); CALCIUM 9.4 mg/dL (8.5-10.1); CHLORIDE 110 mmol/L (98-107)
[2020-08-22 06:17] LABS: ALANINE AMINOTRANSFERASE 14 U/L (12-78); ALKALINE PHOSPHATASE 97 U/L (45-117); BILIRUBIN,TOTAL 0.5 mg/dL (0.2-1.0); CREATININE 0.78 mg/dL (0.55-1.02)
[2020-08-22 06:54] VITALS: BP 149/79
[2020-08-22] MEDS ORDERED: CIPR250T27 PO (06:56)
[2020-08-22] MEDS ORDERED: CIPROFLOXACIN 500 MG TABLET PO SCH (07:00)
== END 2020-08-22 08:10 | disposition home or self-care (01) | DRG 661 ==
LOC: ED 07:36 → EDIP 11:02 → 4NE 14:13
PROVIDERS: ADMIT Family Medicine; ATTEND Family Medicine
PROC: 0T768DZ Dilation of Right Ureter with Intraluminal Device, Via Natural or Artificial Opening Endoscopic (ICD-10-PCS; principal; 2020-08-21 16:15)
DX: N13.6 Pyonephrosis (principal); F17.210 Nicotine dependence, cigarettes, uncomplicated; G89.29 Other chronic pain; N21.1 Calculus in urethra; E66.9 Obesity, unspecified; D72.829 Elevated white blood cell count, unspecified; M47.9 Spondylosis, unspecified; I10 Essential (primary) hypertension; Z80.42 Family history of malignant neoplasm of prostate; Z82.49 Family history of ischemic heart disease and other diseases of the circulatory system; Z87.442 Personal history of urinary calculi; Z68.35 Body mass index [BMI] 35.0-35.9, adult; Z88.5 Allergy status to narcotic agent; Z98.51 Tubal ligation status
CPT/HCPCS: 36415; 74176; 80053; 81001; 83690; 85025; 87086; 87635; 96361; 96374; 96375; 99285; G0378; J0696; J1100; J1170; J1885; J2250; J2405; J2704; J3010; C1758; C1769; C2617; J0330; J7030

== ENCOUNTER → 2020-10-21 | Outpatient (CLI) | payer OTHER ==
[~2020-10-21] MED LIST changes: +CIPR250T27 PO; -CIPR500T3 PO; +CIPR500T4 PO; -HYDR-3246 PO; +HYDR-3248 PO
[2020-10-21 12:00] LABS: BASOPHILS % (AUTO) 1 % (0-1); EOSINOPHILS % (AUTO) 1 % (1-7); LYMPHOCYTES % (AUTO) 37 % (22-44); MD NO; MEAN CORPUSCULAR HEMOGLOBIN 30.7 pg (27.0-34.8); MEAN CORPUSCULAR HGB CONC 34.1 g/dL (32.4-35.8); MEAN PLATELET VOLUME 8.2 fL (7.4-10.4); MONOCYTES % (AUTO) 6 % (2-9); NEUTROPHILS % (AUTO) 55 % (42-75); PLATELET COUNT 289 x10^3/uL (130-400); RED CELL DISTRIBUTION WIDTH 13.1 % (9.6-15.2)
[2020-10-21 12:03] LABS: ANION GAP 6 mmol/L (5-15); CALCIUM 8.9 mg/dL (8.5-10.1); CHLORIDE 110 mmol/L (98-107); CREATININE 0.79 mg/dL (0.55-1.02)
[2020-10-21 12:05] LABS: INTERNATIONAL NORMALIZED RATIO 0.99 (0.93-1.1); PROTHROMBIN TIME 10.6 Seconds (9.6-11.5)
== END | disposition home or self-care (01) ==
LOC: LAB 11:28
PROVIDERS: ATTEND Urology
DX: N20.0 Calculus of kidney (principal)
CPT/HCPCS: 36415; 80048; 85025; 85610; 85730; 87086

== ENCOUNTER → 2021-01-04 | Outpatient (CLI) | payer OTHER, MEDICAID ==
[~2021-01-04] MED LIST changes: +CYCL7.5T25 PO; +HYDR12.517 PO; +Hemp Oil PO; +LACT1CAP35 PO; +MARIJAUNA INH; +PNV1CAPS PO; +SULF-23 PO; -SULF1TAB24 PO; +TAPE50TA11 PO; +TAPE50TA9 PO
[2021-01-04 10:42] LABS: BASOPHILS % (AUTO) 0 % (0-1); EOSINOPHILS % (AUTO) 1 % (1-7); LYMPHOCYTES % (AUTO) 27 % (22-44); MEAN CORPUSCULAR HEMOGLOBIN 30.6 pg (27.0-34.8); MEAN PLATELET VOLUME 8.1 fL (7.4-10.4); MONOCYTES % (AUTO) 8 % (2-9); NEUTROPHILS % (AUTO) 63 % (42-75); PLATELET COUNT 275 x10^3/uL (130-400); RED BLOOD COUNT 4.45 x10^6/uL (3.82-5.3)
[2021-01-04 10:43] LABS: INTERNATIONAL NORMALIZED RATIO 0.94 (0.93-1.1); PROTHROMBIN TIME 10.1 Seconds (9.6-11.5)
[2021-01-04 10:44] LABS: ANION GAP 4 mmol/L (5-15); CALCIUM 8.8 mg/dL (8.5-10.1); CHLORIDE 108 mmol/L (98-107); CREATININE 0.61 mg/dL (0.55-1.02); MD NO
[2021-01-04 13:45] LABS: MICROSCOPIC INDICATED
== END | disposition home or self-care (01) ==
LOC: STAR 09:17
PROVIDERS: ATTEND Urology
DX: Z01.818 Encounter for other preprocedural examination (principal); N20.0 Calculus of kidney; R94.31 Abnormal electrocardiogram [ECG] [EKG]; Z20.822 Contact with and (suspected) exposure to COVID-19
CPT/HCPCS: 36415; 80048; 81001; 85025; 85610; 87086; 93005; U0003; U0005

== ENCOUNTER 2021-01-09 09:06 | Observation (INO) | payer MEDICAID, OTHER ==
[~2021-01-09] VITALS: Ht 165.1 cm; Wt 103.7 kg
[2021-01-09] MEDS ORDERED: CEFAZOLIN PMX 1GM/50ML 50 ML IV ONE (10:30)
[2021-01-09] MEDS ORDERED: SODIUM CHLORIDE 0.9% 1,000 ML IV ONE (10:30)
[2021-01-09] MEDS ORDERED: LACTATED RINGERS 1,000 ML IV SCH (10:30)
[2021-01-09] MEDS ORDERED: CHLORHEXIDINE 15 ML UDC PO ONE (10:30)
[2021-01-09] MEDS ORDERED: CEFAZOLIN 1,000 MG IM ONE (10:30)
[2021-01-09] MEDS ORDERED: FENTANYL PF 250 MCG/5ML IVPush ONE (13:00)
[2021-01-09] MEDS ORDERED: FENTANYL PF 250 MCG/5ML IVPush PRN (13:30)
[2021-01-09] MEDS ORDERED: CHLORHEXIDINE 15 ML UDC ONE (15:46)
[2021-01-09] MEDS ORDERED: FLUMAZENIL 0.1 MG/1 ML, 5ML ONE (15:46)
[2021-01-09] MEDS ORDERED: ALBUTEROL SULFATE 200 PUFFS/8.5 GR INH ONE (15:46)
[2021-01-09] MEDS ORDERED: CEFAZOLIN 1,000 MG ONE (15:46)
[2021-01-09] MEDS ORDERED: MIDAZOLAM 1 MG/ML, 5ML ONE (15:46)
[2021-01-09] MEDS ORDERED: NALOXONE 0.4 MG/ML, 1ML ONE (15:46)
[2021-01-09] MEDS ORDERED: OMNIPAQUE 350 MG/ML, 50 ML BOTTLE ONE (15:46)
[2021-01-09] MEDS ORDERED: FENTANYL PF 100 MCG/2ML ONE ×3 (15:46→18:42)
[2021-01-09] MEDS ORDERED: MIDAZOLAM 1 MG/ML, 2ML ONE (15:46)
[2021-01-09] MEDS ORDERED: FENTANYL PF 250 MCG/5ML ONE (15:46)
[2021-01-09] MEDS ORDERED: HYDROmorphone 1 MG/ML, 1ML INJ IVPush PRN (16:00)
[2021-01-09] MEDS ORDERED: MEPERIDINE/PF 25MG/0.5ML IVPush PRN (16:00)
[2021-01-09] MEDS ORDERED: hydrALAzine 20 MG/ML, 1ML IV PRN (16:00)
[2021-01-09] MEDS ORDERED: OXYcodone 5 MG/5 ML ORAL.SOL UDC PO PRN (16:00)
[2021-01-09] MEDS ORDERED: PROMETHAZINE 25 MG/ML, 1ML IVPush PRN (16:00)
[2021-01-09] MEDS ORDERED: HALOPERIDOL 5 MG/ML IV PRN (16:00)
[2021-01-09] MEDS ORDERED: LABETALOL 5MG/ML, 20ML IV PRN (16:00)
[2021-01-09] MEDS ORDERED: ACETAMINOPHEN 325 MG TABLET PO PRN (16:00)
[2021-01-09] MEDS ORDERED: HYDROmorphone 2 MG/ML, 1ML ONE (18:42)
[2021-01-09] MEDS ORDERED: FENTANYL PF 100 MCG/2ML IV PRN (19:00)
[2021-01-09] MEDS: GABAPENTIN 400 MG CAPSULE PO SCH (22:28)
[2021-01-10] MEDS: HYDROmorphone 2 MG/ML, 1ML IVPush PRN ×2 (01:16→04:24)
[2021-01-10 04:11] VITALS: BP 120/65
[2021-01-10 07:15] VITALS: BP 116/68
[2021-01-10] MEDS ORDERED: SODIUM CHLORIDE 0.9% 1,000 ML IV SCH (08:00)
[2021-01-10] MEDS ORDERED: HEPARIN 5,000 UNITS/ML, 1ML SQ SCH (08:00)
[2021-01-10 08:27] LABS: MEAN CORPUSCULAR HEMOGLOBIN 30.2 pg (27.0-34.8); MEAN CORPUSCULAR HGB CONC 33.6 g/dL (32.4-35.8); MEAN PLATELET VOLUME 8.1 fL (7.4-10.4); PLATELET COUNT 196 x10^3/uL (130-400); RED BLOOD COUNT 4.05 x10^6/uL (3.82-5.3); RED CELL DISTRIBUTION WIDTH 14.1 % (9.6-15.2)
[2021-01-10 08:37] LABS: ANION GAP 5 mmol/L (5-15); CALCIUM 7.9 mg/dL (8.5-10.1); CHLORIDE 109 mmol/L (98-107); CREATININE 0.79 mg/dL (0.55-1.02)
[2021-01-10] MEDS: GABAPENTIN 400 MG CAPSULE PO SCH (08:40)
[2021-01-10 08:46] LABS: BAND#(MANUAL) 2.01 x10^3/uL; BANDS%(MANUAL) 10 % (0-7); LYMPH#(MANUAL) 1.01 x10^3/uL (1-3.4); LYMPHS% (MANUAL) 5 % (22-44); MONOS#(MANUAL) 1.01 x10^3/uL (0.3-2.7); MONOS% (MANUAL) 5 % (2-9); SEG#(MANUAL) 16.08 x10^3/uL (1.8-6.8); SEGS% (MANUAL) 80 % (42-75)
[2021-01-10 08:47] LABS: <PLATELET ESTIMATE> ADEQUATE; <PLT MORPHOLOGY> NORMAL PLT MORPH; <RBC MORPHOLOGY> NORMAL
[2021-01-10] MEDS: HYDROmorphone 1 MG/ML, 1ML INJ IVPush PRN ×2 (08:49→12:34)
[2021-01-10] MEDS ORDERED: TAPENTADOL 50 MG HOMEMEDPO SCH (09:00)
[2021-01-10] MEDS ORDERED: TAPENTADOL HCL 50 MG HOMEMEDPO SCH (09:00)
[2021-01-10] MEDS ORDERED: CYCLOBENZAPRINE 10 MG TABLET PO SCH (09:00)
[2021-01-10 12:45] VITALS: BP 120/67
[2021-01-10] MEDS ORDERED: CARVEDILOL 3.125 MG TABLET PO SCH (21:00)
[2021-01-27] MEDS ORDERED: CYCL10TA2 PO (10:20)
== END 2021-01-10 13:21 | disposition home or self-care (01) ==
LOC: OUT 09:06 → 4NE 20:20 → INTOOBSV 20:43 → OUT 20:43 → 4NE 20:43 → DCLOUNGE 01-10 13:14 → UNDODISIN 01-10 13:21
PROVIDERS: ADMIT Urology; ATTEND Urology
DX: N20.0 Calculus of kidney (principal); I10 Essential (primary) hypertension; G47.30 Sleep apnea, unspecified; E66.9 Obesity, unspecified; F17.210 Nicotine dependence, cigarettes, uncomplicated; F12.90 Cannabis use, unspecified, uncomplicated; Z68.36 Body mass index [BMI] 36.0-36.9, adult; Z79.899 Other long term (current) drug therapy
CPT/HCPCS: 36415; 50080; 50432; 80048; 85025; 96365; 96372; 96375; 96376; 99156; 99157; C1727; C1729; C1751; C1769; C1894; C2625; G0378; J0690; J1170; J1644; J2250; J2310; J3010; J7030; J7120; Q9967; 74425

== ENCOUNTER → 2021-01-27 | Outpatient (CLI) | payer MEDICAID, MEDICARE ==
[~2021-01-27] MED LIST changes: +CYCL10TA2 PO
[2021-01-27 10:16] LABS: BASOPHILS % (AUTO) 1 % (0-1); EOSINOPHILS % (AUTO) 2 % (1-7); LYMPHOCYTES % (AUTO) 41 % (22-44); MEAN CORPUSCULAR HEMOGLOBIN 30.9 pg (27.0-34.8); MEAN CORPUSCULAR HGB CONC 34.6 g/dL (32.4-35.8); MEAN PLATELET VOLUME 7.9 fL (7.4-10.4); MONOCYTES % (AUTO) 7 % (2-9); NEUTROPHILS % (AUTO) 49 % (42-75); PLATELET COUNT 398 x10^3/uL (130-400); RED BLOOD COUNT 3.94 x10^6/uL (3.82-5.3); RED CELL DISTRIBUTION WIDTH 14.1 % (9.6-15.2)
[2021-01-27 10:18] LABS: MD NO
[2021-01-27 10:24] LABS: MICROSCOPIC INDICATED
[2021-01-27 10:25] LABS: INTERNATIONAL NORMALIZED RATIO 0.95 (0.93-1.1); PROTHROMBIN TIME 10.2 Seconds (9.6-11.5)
[2021-01-27 10:26] LABS: ANION GAP 4 mmol/L (5-15); CALCIUM 8.5 mg/dL (8.5-10.1); CHLORIDE 109 mmol/L (98-107); CREATININE 0.67 mg/dL (0.55-1.02)
== END | disposition home or self-care (01) ==
LOC: STAR 09:08
PROVIDERS: ATTEND Urology
DX: Z01.812 Encounter for preprocedural laboratory examination (principal); N20.0 Calculus of kidney; Z20.822 Contact with and (suspected) exposure to COVID-19
CPT/HCPCS: 36415; 80048; 81001; 85025; 85610; 85730; 87086; U0003; U0005

== ENCOUNTER 2021-02-01 08:38 | Day surgery (SDC) | payer MEDICAID, MEDICARE ==
[~2021-02-01] VITALS: Ht 175.3 cm; Wt 99.0 kg
[2021-02-01 08:45] VITALS: BP 154/73
[2021-02-01] MEDS ORDERED: LACTATED RINGERS 1,000 ML IV SCH (09:00)
[2021-02-01] MEDS ORDERED: CHLORHEXIDINE 15 ML UDC PO ONE (09:00)
[2021-02-01] MEDS ORDERED: PROMETHAZINE 25 MG/ML, 1ML IVPush PRN ×2 (09:30→12:30)
[2021-02-01] MEDS ORDERED: OXYcodone 5 MG/5 ML ORAL.SOL UDC PO PRN ×2 (09:30→12:30)
[2021-02-01] MEDS ORDERED: LABETALOL 5MG/ML, 20ML IV PRN ×2 (09:30→12:30)
[2021-02-01] MEDS ORDERED: hydrALAzine 20 MG/ML, 1ML IV PRN ×2 (09:30→12:30)
[2021-02-01] MEDS ORDERED: HALOPERIDOL 5 MG/ML IV PRN ×2 (09:30→12:30)
[2021-02-01] MEDS ORDERED: FENTANYL PF 100 MCG/2ML IV PRN (09:30)
[2021-02-01] MEDS ORDERED: HYDROmorphone 1 MG/ML, 1ML INJ IVPush PRN ×2 (09:30→12:30)
[2021-02-01] MEDS ORDERED: ACETAMINOPHEN 325 MG TABLET PO PRN (09:30)
[2021-02-01] MEDS ORDERED: MEPERIDINE/PF 25MG/0.5ML IVPush PRN ×2 (09:30→12:30)
[2021-02-01] MEDS ORDERED: GENTAMICIN 80 MG/2 ML ONE ×2 (09:36)
[2021-02-01] MEDS ORDERED: FENTANYL PF 250 MCG/5ML ONE (09:42)
[2021-02-01] MEDS ORDERED: MIDAZOLAM 1 MG/ML, 2ML ONE (09:42)
[2021-02-01] MEDS ORDERED: PROPOFOL 10 MG/ML, 20ML ONE (09:45)
[2021-02-01] MEDS ORDERED: CEFAZOLIN 1,000 MG ONE (09:45)
[2021-02-01] MEDS ORDERED: ONDANSETRON 2MG/ML, 2ML ONE (09:45)
[2021-02-01] MEDS ORDERED: NEOSTIGMINE 1 MG/ML, 10ML ONE (09:45)
[2021-02-01] MEDS ORDERED: ROCURONIUM 10MG/ML,5ML ONE (09:45)
[2021-02-01] MEDS ORDERED: DEXAMETHASONE 4 MG/ML, 1ML ONE (09:45)
[2021-02-01] MEDS ORDERED: GLYCOPYRROLATE 0.2MG/1ML, 5ML ONE (09:45)
[2021-02-01] MEDS: FENTANYL PF 100 MCG/2ML IV PRN ×3 (11:56→12:23)
[2021-02-01] MEDS ORDERED: FENTANYL PF 100 MCG/2ML ONE ×2 (12:04→12:22)
[2021-02-01] MEDS ORDERED: OXYcodone 5 MG/5 ML ORAL.SOL UDC ONE (12:15)
== END 2021-02-01 13:45 | disposition home or self-care (01) ==
LOC: OUT 08:38
PROVIDERS: ATTEND Urology
DX: N20.0 Calculus of kidney (principal); G47.33 Obstructive sleep apnea (adult) (pediatric); Z79.899 Other long term (current) drug therapy; Z88.5 Allergy status to narcotic agent; Z88.8 Allergy status to other drugs, medicaments and biological substances
CPT/HCPCS: 52356; 74018; C1769; C2617; J0690; J1100; J1580; J2250; J2405; J2704; J2710; J3010; J7120; 76000

== ENCOUNTER → 2021-03-24 | Outpatient (CLI) | payer MEDICAID ==
[~2021-03-24] MED LIST changes: +ALPR1TAB2 PO; +ALPRazolam 1MG TAB ONE
== END | disposition home or self-care (01) ==
LOC: RAD 13:38
PROVIDERS: ATTEND Nurse Practitioner
DX: M54.12 Radiculopathy, cervical region (principal); M54.16 Radiculopathy, lumbar region; M54.14 Radiculopathy, thoracic region; M48.061 Spinal stenosis, lumbar region without neurogenic claudication; M48.07 Spinal stenosis, lumbosacral region; M43.16 Spondylolisthesis, lumbar region; M48.02 Spinal stenosis, cervical region; M25.78 Osteophyte, vertebrae; N13.2 Hydronephrosis with renal and ureteral calculous obstruction; G89.4 Chronic pain syndrome; Z79.899 Other long term (current) drug therapy
CPT/HCPCS: 72050; 72110; 72141; 72146; 72148; 74018

== ENCOUNTER 2021-04-08 04:22 | Inpatient (IN) | payer MEDICAID ==
[~2021-04-08] VITALS: Ht 165.1 cm; Wt 107.0 kg
[~2021-04-08 04:22] MED LIST changes: -ALPRazolam 1MG TAB ONE
[2021-04-08 05:27] LABS: MICROSCOPIC INDICATED
[2021-04-08 05:29] LABS: BASOPHILS % (AUTO) 0 % (0-1); EOSINOPHILS % (AUTO) 1 % (1-7); LYMPHOCYTES % (AUTO) 19 % (22-44); MEAN CORPUSCULAR HEMOGLOBIN 31.3 pg (27.0-34.8); MEAN CORPUSCULAR HGB CONC 34.5 g/dL (32.4-35.8); MEAN PLATELET VOLUME 8.8 fL (7.4-10.4); MONOCYTES % (AUTO) 6 % (2-9); NEUTROPHILS % (AUTO) 74 % (42-75); PLATELET COUNT 249 x10^3/uL (130-400); RED BLOOD COUNT 5.12 x10^6/uL (3.82-5.3)
[2021-04-08 05:37] LABS: ALBUMIN 3.6 g/dL (3.4-5.0); ANION GAP 6 mmol/L (5-15); CALCIUM 9.7 mg/dL (8.5-10.1); CHLORIDE 108 mmol/L (98-107)
[2021-04-08 05:42] LABS: ALANINE AMINOTRANSFERASE 20 U/L (12-78); ALKALINE PHOSPHATASE 140 U/L (45-117); BILIRUBIN,TOTAL 0.3 mg/dL (0.2-1.0); CREATININE 0.81 mg/dL (0.55-1.02); TOTAL PROTEIN 8.6 g/dL (6.4-8.2)
--- NOTE | 2021-04-08 05:45 | NUR ---
Lenora HONG supervised straight cath to obtain urine
[2021-04-08] MEDS ORDERED: ONDANSETRON 2MG/ML, 2ML ONE ×3 (06:21→11:02)
[2021-04-08] MEDS ORDERED: SODIUM CHLORIDE FLUSH 10ML SYR IVF ONE (06:30)
[2021-04-08] MEDS ORDERED: HYDROmorphone 1 MG/ML, 1ML INJ IV ONE (06:30)
[2021-04-08] MEDS ORDERED: ONDANSETRON 2MG/ML, 2ML IVPush ONE (06:30)
[2021-04-08] MEDS ORDERED: CEFTRIAXONE 1,000 MG in DEXTROSE 5% 50 ML IVPB ONE (06:30)
--- NOTE | 2021-04-08 06:59 | NUR ---
unable to establish IV access for antibiotics and anti-nausea medications. Kael MARIA aware and Chanelle RN also aware of situation
[2021-04-08] MEDS ORDERED: HYDROmorphone 1 MG/ML, 1ML INJ IM ONE (07:00)
--- NOTE | 2021-04-08 07:00 | NUR ---
REPORT RECEIVED, CARE ASSUMED.
[2021-04-08] MEDS ORDERED: HYDROmorphone 2 MG/ML, 1ML ONE (07:10)
[2021-04-08 07:43] LABS: MICROSCOPIC AUTO
--- NOTE | 2021-04-08 07:50 | NUR ---
CONTACT WITH PT. IV ABX INFUSING ORDERED. NO S/S OF ADVERSE INFECTION. AWAITING FOR FURTHER DISPOSITION. NO NEEDS EXPRESSED AT THIS TIME.
[2021-04-08] MEDS ORDERED: SODIUM CHLORIDE 0.9%, 500ML IVBOLUS ONE (08:00)
--- NOTE | 2021-04-08 08:15 | NUR ---
IV ABX COMPLETED. NO S/S OF ADVERSE REACTION. IV NS INFUSING ORDERED WITHOUT REDNESS/SWELLING. NO ACUTE DISTRESS NOTED. NO NEEDS EXPRESSED AT THIS TIME.
--- NOTE | 2021-04-08 08:44 | NUR ---
PT SWABBED FOR RAPID COVID TEST, PENDING TRANSPORT TO SURGERY
--- NOTE | 2021-04-08 09:04 | NUR ---
Pt report from HAL Roca. Pt care to be assumed. Pt sitting upright on gurney, NS infusing, awaiting transfer to OR.
--- NOTE | 2021-04-08 09:04 | NUR ---
BEDSIDE REPORT TO IMER HONG
--- NOTE | 2021-04-08 09:56 | NUR ---
Called OR. No set time for surgery, yet.
--- NOTE | 2021-04-08 10:03 | NUR ---
Pt report to [facility], OR Dept.
--- NOTE | 2021-04-08 10:13 | NUR ---
IV AND MED REC DOCUMENTATION NOTE COMPLETED BY PRIOR STAFF. DOCUMENTATION NOW COMPLETED. LAST ORAL INTAKE: 1900 YESTERDAY.
[2021-04-08] MEDS ORDERED: OMNIPAQUE 350 MG/ML, 50 ML BOTTLE ONE (10:15)
--- NOTE | 2021-04-08 10:18 | NUR ---
OR TECH HERE FOR PT.
[2021-04-08] MEDS ORDERED: FENTANYL PF 100 MCG/2ML ONE (10:25)
[2021-04-08] MEDS ORDERED: ALBUTEROL SULFATE 2.5 MG/3 ML NPPB PRN (11:00)
[2021-04-08] MEDS ORDERED: PROMETHAZINE 25 MG/ML, 1ML IVPush PRN (11:00)
[2021-04-08] MEDS ORDERED: MEPERIDINE/PF 25MG/0.5ML IVPush PRN (11:00)
[2021-04-08] MEDS ORDERED: ACETAMINOPHEN 325 MG TABLET PO PRN (11:00)
[2021-04-08] MEDS ORDERED: MIDAZOLAM 1 MG/ML, 2ML IV PRN (11:00)
[2021-04-08] MEDS ORDERED: FENTANYL PF 100 MCG/2ML IV PRN (11:00)
[2021-04-08] MEDS ORDERED: LABETALOL 5MG/ML, 20ML IV PRN (11:00)
[2021-04-08] MEDS ORDERED: HYDROmorphone 1 MG/ML, 1ML INJ IVPush PRN (11:00)
[2021-04-08] MEDS ORDERED: OXYcodone 5 MG/5 ML ORAL.SOL UDC PO PRN (11:00)
[2021-04-08] MEDS ORDERED: DEXAMETHASONE 4 MG/ML, 1ML ONE (11:02)
[2021-04-08] MEDS ORDERED: PROPOFOL 10 MG/ML, 20ML ONE (11:02)
[2021-04-08] MEDS ORDERED: SUCCINYLCHOLINE 20 MG/ML, 10ML ONE (11:02)
[2021-04-08 12:32] VITALS: BP 161/90
[2021-04-08 12:35] VITALS: BP 144/79
[2021-04-08] MEDS ORDERED: CEFD300C37 PO (13:49)
[2021-04-08] MEDS ORDERED: HEPARIN 5,000 UNITS/ML, 1ML SQ SCH (14:00)
[2021-04-08] MEDS ORDERED: ONDANSETRON 2MG/ML, 2ML IVPush PRN (14:00)
[2021-04-08] MEDS ORDERED: ONDANSETRON ODT 4 MG PO PRN (14:00)
[2021-04-08] MEDS ORDERED: CYCLOBENZAPRINE 10 MG TABLET PO SCH (16:00)
[2021-04-08] MEDS ORDERED: GABAPENTIN 300 MG CAPSULE PO SCH (16:00)
== END 2021-04-08 17:33 | disposition home or self-care (01) | DRG 668 ==
LOC: OR 08:56 → EDIP 09:10 → 3N 11:41
PROVIDERS: ADMIT Internal Medicine; ATTEND Internal Medicine
PROC: 0T9B70Z Drainage of Bladder with Drainage Device, Via Natural or Artificial Opening (ICD-10-PCS; 2021-04-08)
PROC: 0TC68ZZ Extirpation of Matter from Right Ureter, Via Natural or Artificial Opening Endoscopic (ICD-10-PCS; principal; 2021-04-08 12:00)
DX: N13.6 Pyonephrosis (principal); E43 Unspecified severe protein-calorie malnutrition; F12.90 Cannabis use, unspecified, uncomplicated; F17.200 Nicotine dependence, unspecified, uncomplicated; G47.30 Sleep apnea, unspecified; I10 Essential (primary) hypertension; J45.909 Unspecified asthma, uncomplicated; K57.30 Diverticulosis of large intestine without perforation or abscess without bleeding; G89.29 Other chronic pain; Z20.822 Contact with and (suspected) exposure to COVID-19; Z98.51 Tubal ligation status; Z88.5 Allergy status to narcotic agent; Z88.1 Allergy status to other antibiotic agents; Z91.041 Radiographic dye allergy status; Z68.39 Body mass index [BMI] 39.0-39.9, adult
CPT/HCPCS: 36415; 74018; 74176; 80053; 81001; 83690; 85025; 87086; 87635; 88300; 96361; 96374; 96375; 99285; G0378; J0696; J1100; J1170; J2405; J2704; J3010; Q9967; J0330; J7040